=== PATIENT | male | born 1955 ===

== ENCOUNTER 2020-08-11 15:55 | Outpatient (CLI) | payer OTHER | END 2020-08-11 16:02 | disposition HB | LOC: RAD 15:55 | DX: I10 Essential (primary) hypertension (principal) ==

== ENCOUNTER 2023-01-02 08:20 | Outpatient (CLI) | payer OTHER | END 2023-01-02 08:24 | disposition home or self-care (01) | LOC: SONOGRAMA 08:20 | PROVIDERS: ATTEND Internal Medicine | DX: R94.5 Abnormal results of liver function studies (principal) ==

== ENCOUNTER 2023-04-12 10:52 | Outpatient (CLI) | payer OTHER | END 2023-04-12 11:02 | disposition home or self-care (01) | LOC: MRI 10:52 | PROVIDERS: ATTEND Specialist | DX: M54.16 Radiculopathy, lumbar region (principal) | CPT/HCPCS: 72148 ==

== ENCOUNTER 2024-12-26 11:48 | Outpatient (CLI) | payer OTHER | END 2024-12-26 11:51 | disposition home or self-care (01) | LOC: SONOGRAMA 11:48 | PROVIDERS: ATTEND Urology | DX: N40.1 Benign prostatic hyperplasia with lower urinary tract symptoms (principal) ==